=== PATIENT | female | born 1930 | race Caucasian/White ===

== ENCOUNTER 2016-09-01 16:09 | Inpatient (IN) | payer MEDICARE, MEDICAID ==
[~2016-09-01] VITALS: Ht 154.9 cm; Wt 40.9 kg
[~2016-09-01 16:09] MED LIST: AMLO5TAB2 PO; ASPI81TA31 PO; Acetaminophen PO; CARV12.52 PO; Docusate Sodium PO; FLUT16SP NS; LATA2.5D2 EACHEYE; LOSA25TA13 PO; NICO1PAT28 TD; Nut.tx.glucose Intolerance,Soy PO; OMEP40CA37 PO; Zolpidem Tartrate PO
--- NOTE | 2016-09-01 16:55 | NUR ---
DR MONCADA AT THE BEDSIDE FOR EVAL AND EXAM.
[2016-09-01 17:26] LABS: BASOPHILS # (AUTO) 0.1 K/uL (0.0-8.0); BASOPHILS % (AUTO) 0.9 % (0.0-2.0); EOSINOPHILS # (AUTO) 0.3 K/uL (0.0-0.7); EOSINOPHILS % (AUTO) 3.7 % (0.0-7.0); HEMATOCRIT 32.7 % (37-47); HEMOGLOBIN 11.3 G/DL (12.0-16.0); LYMPHOCYTES # (AUTO) 1.3 K/uL (20.0-40.0); LYMPHOCYTES % (AUTO) 18.7 % (20.5-51.5); MEAN CORPUSCULAR HEMOGLOBIN 31.3 UUG (27.0-31.0); MEAN CORPUSCULAR HGB CONC 35 g/dL (32.0-37.0); MEAN CORPUSCULAR VOLUME 90.5 FL (81.0-99.0); MONOCYTES # (AUTO) 0.6 K/uL (2.0-10.0); MONOCYTES % (AUTO) 8.2 % (0.0-11.0); NEUTROPHILS # (AUTO) 4.5 K/uL (1.8-8.9); NEUTROPHILS % (AUTO) 68.5 % (38.5-71.5); PLATELET COUNT (AUTO) 134 K/UL (150-450); RED BLOOD CELL COUNT(AUTO) 3.61 MIL/UL (4.2-5.4); WHITE BLOOD COUNT (AUTO) 6.8 K/UL (4.0-11.2)
[2016-09-01 17:29] LABS: CREATININE 1.3 mg/dL (0.6-1.3); POTASSIUM 4.8 mmol/L (3.5-5.1)
[2016-09-01 17:38] LABS: BILIRUBIN,DIRECT 0.1 mg/dL (0.0-0.2); BILIRUBIN,TOTAL 0.2 mg/dL (0.2-1.0); TOTAL PROTEIN, SERUM 6.5 g/dL (6.4-8.2)
[2016-09-01 18:19] LABS: *BILIRUBIN,URIN NEGATIVE (NEGATIVE); *BLOOD, URINE Trace-lysed (NEGATIVE); *CLARITY,URINE CLEAR (CLEAR); *COLOR,URINE YELLOW (YELLOW); *KETONES,URINE NEGATIVE (NEGATIVE); *UROBILINOGEN,URINE 0.2 E.U./dl (NORMAL); LEUKOCYTE ESTERASE ,URINE NEGATIVE (NEGATIVE); NITRITE, URINE NEGATIVE (NEGATIVE); UGLUCOSE NEGATIVE (NEGATIVE)
[2016-09-01 18:27] LABS: *PROTEIN,URINE 3+ (NEGATIVE)
[2016-09-01 18:28] LABS: BACTERIA,URINE NONE SEEN /HPF (NONE SEEN); RBC,URINE 0-3 /HPF (0-3); SQUAMOUS EPITHELIAL CELL,UR FEW /HPF (NONE SEEN); WBC,URINE 0-3 /HPF (0-3)
--- NOTE | 2016-09-01 20:24 | NUR ---
TRANSFERED TO 2ND FLOOR MED SURG VIA [facility]
[2016-09-01 20:30] VITALS: BP 153/63
--- NOTE | 2016-09-01 20:30 | NUR ---
PATIENT ADMITTED VIA GURNEY UNDER THE CARE OF DR. TAHIRA SOLER, ACCOMPANIED BY DAUGHTER. ALERT ORIENTED, WITH ANXIOUS, AND ANGRY AT THE DAUGHTER, ORIENTED TO ROOM, CALL LIGHTS, BATHROOM. AND TV REMOTE CONTROL.
[2016-09-01] MEDS ORDERED: ONDANSETRON 4 MG/2 ML VIAL IV PRN (21:00)
[2016-09-01] MEDS ORDERED: DEXTROSE 50% 50 ML DISP.SYRIN IV PRN (21:00)
[2016-09-01] MEDS ORDERED: ACETAMINOPHEN 325 MG TABLET PO PRN (21:00)
--- NOTE | 2016-09-01 21:00 | NUR ---
DR. TAHIRA SOLER RETURNED THE PAGE, WITH ORDER, NOTED AND CARRIED OUT.
[2016-09-01] MEDS: BLOOD SUGAR DIAGNOSTIC 1 EACH STRIP VI SCH (22:27)
[2016-09-01] MEDS: LATANOPROST OPHT DROP 2.5 ML BOTTLE EACHEYE SCH (22:27)
[2016-09-02 05:16] VITALS: BP 166/68
--- NOTE | 2016-09-02 05:17 | NUR ---
PATIENT SLEPT MOST OF THE NIGHT, NO SOB NO CHEST PAIN NOTED, ASSIST WITH TOILETING, KEPT CLEAN DRY AND COMFORTABLE.
[2016-09-02] MEDS: PANTOPRAZOLE SODIUM 40 MG TABLET.DR PO SCH (05:51)
[2016-09-02] MEDS: BLOOD SUGAR DIAGNOSTIC 1 EACH STRIP VI SCH ×4 (05:51→21:45)
[2016-09-02 06:34] LABS: BASOPHILS % (AUTO) 0.6 % (0.0-2.0); EOSINOPHILS # (AUTO) 0.3 K/uL (0.0-0.7); EOSINOPHILS % (AUTO) 4.6 % (0.0-7.0); HEMATOCRIT 32.8 % (37-47); HEMOGLOBIN 11.5 G/DL (12.0-16.0); LYMPHOCYTES # (AUTO) 1.2 K/UL (0.8-4.8); LYMPHOCYTES % (AUTO) 17.7 % (20.5-51.5); MEAN CORPUSCULAR HEMOGLOBIN 31.8 UUG (27.0-31.0); MEAN CORPUSCULAR HGB CONC 35 g/dL (32.0-37.0); MEAN CORPUSCULAR VOLUME 90.8 FL (81.0-99.0); MONOCYTES # (AUTO) 0.5 K/UL (0.1-1.30); MONOCYTES % (AUTO) 7.1 % (0.0-11.0); NEUTROPHILS # (AUTO) 4.7 K/UL (1.8-8.9); PLATELET COUNT (AUTO) 126 K/UL (150-450); RED BLOOD CELL COUNT(AUTO) 3.62 MIL/UL (4.2-5.4); WHITE BLOOD COUNT (AUTO) 6.7 K/UL (4.0-11.2)
[2016-09-02 07:06] LABS: BILIRUBIN,TOTAL 0.4 mg/dL (0.2-1.0); CREATININE 1.3 mg/dL (0.6-1.3); TOTAL PROTEIN, SERUM 6.3 g/dL (6.4-8.2)
--- NOTE | 2016-09-02 08:00 | NUR ---
Awake, alert, oriented x 3, forgetful. Assisted to the bathroom then sitting on the chair. Breakfast served. Call light with in reach, instructed use call light for assistance
[2016-09-02] MEDS: FLUTICASONE PROP NASAL SPRAY 16 GM BOTTLE NS SCH (08:35)
[2016-09-02] MEDS: CARVEDILOL 12.5 MG TABLET PO SCH ×2 (08:36→17:11)
[2016-09-02] MEDS: LOSARTAN POTASSIUM 25 MG TABLET PO SCH (08:37)
[2016-09-02] MEDS: AMLODIPINE 5 MG TABLET PO SCH (08:37)
[2016-09-02 11:13] VITALS: BP 136/53
[2016-09-02] MEDS: INSULIN REGULAR, HUMAN 300 UNIT/3 ML VIAL SQ PRN (12:40)
--- NOTE | 2016-09-02 14:00 | NUR ---
Ambulating in the hallway with RN.
[2016-09-02 15:28] VITALS: BP 147/56
--- NOTE | 2016-09-02 18:31 | NUR ---
Ate fairly. Kept dry and comfortable
--- NOTE | 2016-09-02 19:45 | NUR ---
Received pt in bed resting, eyes closed, easily awakens to name. No acute distress noted. Even and nonlabored breathing observed. denies pain or discomfort at this time. call light in reach and safety measures in place, will continue to monitor.
[2016-09-02 20:00] VITALS: BP 145/63
[2016-09-02] MEDS: LATANOPROST OPHT DROP 2.5 ML BOTTLE EACHEYE SCH (21:45)
[2016-09-03] MEDS: BLOOD SUGAR DIAGNOSTIC 1 EACH STRIP VI SCH ×4 (06:30→21:03)
[2016-09-03] MEDS: PANTOPRAZOLE SODIUM 40 MG TABLET.DR PO SCH (06:30)
[2016-09-03 06:31] VITALS: BP 150/67
--- NOTE | 2016-09-03 06:43 | NUR ---
END OF SHIFT NOTE: PATIENT RESTING IN BED, SLEPT INTERMITTENTLY PER SHIFT. NO ACUTE DISTRESS NOTED. NO C/O PAIN PER SHIFT. NO SOB OBSERVED/REPORTED. SAT WNL ON ROOM AIR. VS STABLE. ALL NEEDS MET. CALL LIGHT IN REACH. SAFETY AND COMFORT MEASURES PROVIDED.
--- NOTE | 2016-09-03 07:15 | NUR ---
PT IS LAYING DOWN COMFORTABLY. NO S/S OF RESPIRATORY DISTRESS NOTED. PT REPORT NO PAIN. IV IS REMOVED. NO S/S OF INFECTION/REDDNESS IS NOTED ON IV SITE. WILL CONTINUE TO MONITOR.
--- NOTE | 2016-09-03 08:07 | NUR ---
PT IS CONCERNED ABOUT HER IV "STATES I NEED IT REMOVED, OR ELSE YOU WILL GO WITH ME SOMEWHERE ELSE IF IT'S GONNA GET INFECTED". PER DR. ROMAN "OK TO REMOVE IV". IV WILL BE REMOVED.
[2016-09-03] MEDS: CARVEDILOL 12.5 MG TABLET PO SCH ×2 (08:54→17:32)
[2016-09-03] MEDS: AMLODIPINE 5 MG TABLET PO SCH (08:54)
[2016-09-03] MEDS: FLUTICASONE PROP NASAL SPRAY 16 GM BOTTLE NS SCH (08:55)
[2016-09-03] MEDS: LOSARTAN POTASSIUM 25 MG TABLET PO SCH (08:55)
[2016-09-03 11:26] VITALS: BP 125/50
[2016-09-03 15:36] VITALS: BP 127/56
--- NOTE | 2016-09-03 18:54 | NUR ---
PT. SHOWS NO SIGNS OF ACUTE DISTRESS. PT SHOWS NO SOB. PT. IS CONFUSED. PT STATES NO PAIN. VITAL SIGNS WNL. CONTINUED TO FOLLOW MEDICATION REGIMEN ORDERED.
[2016-09-03 19:00] VITALS: BP 113/44
--- NOTE | 2016-09-03 19:35 | NUR ---
PT RESTING IN BED SLEEPING COMFORTABLY, EASILY AWAKENS TO NAME. NO ACUTE DISTRESS NOTED. EVEN AND NONLABORED BREATHING OBSERVED. VS ARE STABLE. CALL LIGHT WITHIN REACH AND SAFETY MEASURES IN PLACE. WILL CONTINUE TO MONITOR
[2016-09-03] MEDS: LATANOPROST OPHT DROP 2.5 ML BOTTLE EACHEYE SCH (21:03)
[2016-09-04 05:00] VITALS: BP 140/55
[2016-09-04] MEDS: BLOOD SUGAR DIAGNOSTIC 1 EACH STRIP VI SCH ×3 (06:29→17:09)
[2016-09-04] MEDS: PANTOPRAZOLE SODIUM 40 MG TABLET.DR PO SCH (06:29)
--- NOTE | 2016-09-04 06:49 | NUR ---
END OF SHIFT NOTE: PT SLEPT WELL THROUGH THE NIGHT. NO ACUTE DISTRESS PER SHIFT. BG CONTROLLED, REMAINS STABLE, NO COVERAGE PER SLIDING SCALE. VS STABLE. NO C/O PAIN OR DISCOMFORT. NO SOB NOTED/REPORTED. NO SIGNIFICANT CHANGES PER SHIFT. ALL NEEDS ATTENDED AND MET. CALL LIGHT WITHIN REACH. SAFETY MAINTAINED. CONTINUE PLAN OF CARE.
[2016-09-04 06:50] LABS: BILIRUBIN,TOTAL 0.4 mg/dL (0.2-1.0); PHOSPHOROUS 4.3 mg/dL (2.5-4.9); POTASSIUM 4.9 mmol/L (3.5-5.1); TOTAL PROTEIN, SERUM 6.2 g/dL (6.4-8.2)
[2016-09-04 06:54] LABS: CREATININE 1.7 mg/dL (0.6-1.3)
[2016-09-04 07:06] LABS: BASOPHILS % (AUTO) 0.6 % (0.0-2.0); EOSINOPHILS # (AUTO) 0.3 K/uL (0.0-0.7); EOSINOPHILS % (AUTO) 4.9 % (0.0-7.0); HEMATOCRIT 32.6 % (37-47); HEMOGLOBIN 11.1 G/DL (12.0-16.0); LYMPHOCYTES # (AUTO) 1.7 K/UL (0.8-4.8); LYMPHOCYTES % (AUTO) 29.4 % (20.5-51.5); MEAN CORPUSCULAR HEMOGLOBIN 31.6 UUG (27.0-31.0); MEAN CORPUSCULAR HGB CONC 34 g/dL (32.0-37.0); MONOCYTES # (AUTO) 0.5 K/UL (0.1-1.30); MONOCYTES % (AUTO) 8.2 % (0.0-11.0); NEUTROPHILS # (AUTO) 3.4 K/UL (1.8-8.9); NEUTROPHILS % (AUTO) 56.9 % (38.5-71.5); PLATELET COUNT (AUTO) 125 K/UL (150-450); RED BLOOD CELL COUNT(AUTO) 3.51 MIL/UL (4.2-5.4); WHITE BLOOD COUNT (AUTO) 5.9 K/UL (4.0-11.2)
[2016-09-04] MEDS ORDERED: IV 1/2NS 1000 ML 1,000 ML IV PRN (07:30)
--- NOTE | 2016-09-04 07:39 | NUR ---
DC IV FLUIDS, BUT "MAKE SURE THE PATIENT DRINKS FLUIDS", NICOTINE PATCH 14MG DAILY PER DR. GRIMALDO
[2016-09-04] MEDS ORDERED: NICOTINE 14 MG/24HR PATCH TD SCH (09:00)
[2016-09-04] MEDS: FLUTICASONE PROP NASAL SPRAY 16 GM BOTTLE NS SCH (09:13)
[2016-09-04] MEDS: CARVEDILOL 12.5 MG TABLET PO SCH ×2 (09:14→17:07)
[2016-09-04] MEDS: AMLODIPINE 5 MG TABLET PO SCH (09:14)
[2016-09-04] MEDS: INSULIN REGULAR, HUMAN 300 UNIT/3 ML VIAL SQ PRN (11:03)
[2016-09-04 11:39] VITALS: BP 134/58
--- NOTE | 2016-09-04 13:04 | NUR ---
The patient will be discharged today to [facility] [ ; [address] [place] [address]] via [facility]. Spoke to the patient's son, John Paul Dunbar [ ], about the discharge and he was very thankful and in agreement with her discharge. Left a message to her son, Rajeev Loving [ ]. Also spoke to Elliot and Daya from [facility] and they confirmed that they will admit the patient today. Her RN, Meg, is aware of her discharge plan and will call the facility for the report.
[2016-09-04 15:39] VITALS: BP 143/52
[2016-09-04 17:07] VITALS: BP 145/85
--- NOTE | 2016-09-04 17:15 | NUR ---
DISCHARGE NOTE: NO S/S OF RESPIRATORY DISTRESS NOTED. NO PAIN NOTED. PT IS CALM AND COOPERATIVE. EDUCATION IS PROVIDED. V/S WNL. LEFT VIS AMBULANCE. PT IS REMINDED TO BE HYDRATING.
[2016-09-05 11:06] LABS: A/G RATIO 1.2 (0.7-1.7); ALPHA-1-GLOBULIN 0.3 g/dL (0.0-0.4); ALPHA-2-GLOBULIN 0.7 g/dL (0.4-1.0); GAMMA GLOBULIN 0.7 g/dL (0.4-1.8); GLOBULIN, TOTAL 2.6 g/dL (2.2-3.9); M-SPIKE Not Observed g/dL (Not Observed)
== END 2016-09-04 17:15 | DRG 699 ==
LOC: ER 16:09 → MED 20:17
PROVIDERS: ADMIT Internal Medicine Nephrology; ATTEND Internal Medicine Nephrology
DX: N04.9 Nephrotic syndrome with unspecified morphologic changes (principal); E44.1 Mild protein-calorie malnutrition; Z68.1 Body mass index [BMI] 19.9 or less, adult; N17.0 Acute kidney failure with tubular necrosis; R53.1 Weakness; K21.9 Gastro-esophageal reflux disease without esophagitis; D64.9 Anemia, unspecified; E11.9 Type 2 diabetes mellitus without complications; E78.5 Hyperlipidemia, unspecified; F17.210 Nicotine dependence, cigarettes, uncomplicated; F29 Unspecified psychosis not due to a substance or known physiological condition; Z86.73 Personal history of transient ischemic attack (TIA), and cerebral infarction without residual deficits; Z95.810 Presence of automatic (implantable) cardiac defibrillator; I50.9 Heart failure, unspecified; I25.2 Old myocardial infarction; I11.0 Hypertensive heart disease with heart failure; M19.90 Unspecified osteoarthritis, unspecified site; R62.7 Adult failure to thrive
CPT/HCPCS: 36415; 70030-TC; 70450; 71010; 83735; 83970; 84100; 84155; 84165; 84443; 85025; 85730; 93005; 93880; 97161; A4663; J1815; J3535

== ENCOUNTER 2016-10-07 19:51 | Inpatient (IN) | payer MEDICARE, OTHER ==
[~2016-10-07] VITALS: Ht 152.4 cm; Wt 47.6 kg
[~2016-10-07 19:51] MED LIST changes: -ASPI81TA31 PO; -Docusate Sodium PO; -NICO1PAT28 TD; -Nut.tx.glucose Intolerance,Soy PO; -Zolpidem Tartrate PO
[2016-10-07 20:23] LABS: BASOPHILS # (AUTO) 0.3 K/uL (0.0-8.0); BASOPHILS % (AUTO) 3.8 % (0.0-2.0); EOSINOPHILS # (AUTO) 0.3 K/uL (0.0-0.7); EOSINOPHILS % (AUTO) 3.4 % (0.0-7.0); HEMATOCRIT 31.7 % (37-47); HEMOGLOBIN 10.7 G/DL (12.0-16.0); LYMPHOCYTES # (AUTO) 1.6 K/UL (0.8-4.8); LYMPHOCYTES % (AUTO) 17.4 % (20.5-51.5); MEAN CORPUSCULAR HEMOGLOBIN 30.7 UUG (27.0-31.0); MEAN CORPUSCULAR HGB CONC 34 g/dL (32.0-37.0); MEAN CORPUSCULAR VOLUME 90.9 FL (81.0-99.0); MONOCYTES # (AUTO) 0.9 K/UL (0.1-1.30); MONOCYTES % (AUTO) 9.7 % (0.0-11.0); NEUTROPHILS # (AUTO) 5.9 K/UL (1.8-8.9); NEUTROPHILS % (AUTO) 65.7 % (38.5-71.5); PLATELET COUNT (AUTO) 162 K/UL (150-450); RED BLOOD CELL COUNT(AUTO) 3.49 MIL/UL (4.2-5.4)
[2016-10-07 20:39] LABS: ALANINE AMINOTRANSFERASE 18 U/L (14-59); ALKALINE PHOSPHATASE 163 U/L (50-136); ASPARTATE AMINOTRANSFERASE 21 U/L (15-37); BILIRUBIN,DIRECT 0.1 mg/dL (0.0-0.2); BILIRUBIN,TOTAL 0.4 mg/dL (0.2-1.0); CARBON DIOXIDE 23 mmol/L (21-32); CHLORIDE 107 mmol/L (98-107); CREATININE 1.9 mg/dL (0.6-1.3); GLUCOSE 119 mg/dL (74-106); TOTAL PROTEIN, SERUM 7.2 g/dL (6.4-8.2); UREA NITROGEN, BLOOD 33 mg/dL (7-18)
--- NOTE | 2016-10-07 21:28 | NUR ---
Call placed to [facility] Nephrology, Dr. GRIMALDO will be paged.
--- NOTE | 2016-10-07 22:09 | NUR ---
Pt. admitted to M/S, under care of Dr. GRIMALDO Belongs List completed
--- NOTE | 2016-10-07 22:15 | NUR ---
PT RECEIVED FROM ED VIA [employer]. PT A/OX4. ORIENTED TO ROOM. V/S STABLE. NO SIGNS OF ACUTE DISTRESS. NO COMPLAINTS OF PAIN AT THIS TIME. ABLE TO MAKES NEEDS KNOWN. SAFETY MEASURES IMPLEMENTED. CALL LIGHT WITHIN REACH. WILL CONTINUE TO MONITOR.
[2016-10-07 22:20] VITALS: BP 152/59
[2016-10-07] MEDS: CARVEDILOL 12.5 MG TABLET PO SCH (23:32)
[2016-10-07] MEDS ORDERED: CARVEDILOL 12.5 MG TABLET ONE (23:37)
[2016-10-08 04:00] VITALS: BP 129/47
--- NOTE | 2016-10-08 05:35 | NUR ---
PT SLEPT WELL THROUGHOUT SHIFT. V/S STABLE. NO SIGNS OF ACUTE DISTRESS. NO COMPLAINTS OF PAIN DURING SHIFT. NEEDS ATTENDED. SAFETY MAINTAINED. BED ALARM ACTIVATED. CALL LIGHT WITHIN REACH.
--- NOTE | 2016-10-08 08:42 | NUR ---
PATIENT SEEN AND EXAMINED BY DR PAEZ WITH NEW ORDERS AND NOTED.
[2016-10-08] MEDS ORDERED: ACETAMINOPHEN 325 MG TABLET PO PRN (09:00)
[2016-10-08] MEDS ORDERED: CARVEDILOL 12.5 MG TABLET PO SCH (09:00)
--- NOTE | 2016-10-08 09:00 | NUR ---
AWAKE ALERT DENIES PAIN OR DISCOMFORTS AT THIS TIME.ALL NEEDS ANTICIPATED AND SATISFIED.NO SHORTNESS OF BREATH OR COUGH EPISODES NOT IN DISTRESS AT THIS TIME.
[2016-10-08] MEDS: CARVEDILOL 12.5 MG TABLET PO SCH ×2 (09:20→17:47)
[2016-10-08] MEDS: PANTOPRAZOLE SODIUM 40 MG TABLET.DR PO SCH (09:22)
[2016-10-08] MEDS: AMLODIPINE 5 MG TABLET PO SCH (09:23)
[2016-10-08] MEDS: LOSARTAN POTASSIUM 25 MG TABLET PO SCH (09:23)
[2016-10-08 10:00] LABS: *BILIRUBIN,URIN NEGATIVE (NEGATIVE); *BLOOD, URINE Trace-lysed (NEGATIVE); *CLARITY,URINE CLEAR (CLEAR); *COLOR,URINE LIGHT YELLOW (YELLOW); *KETONES,URINE NEGATIVE (NEGATIVE); *UROBILINOGEN,URINE 0.2 E.U./dl (NORMAL); LEUKOCYTE ESTERASE ,URINE NEGATIVE (NEGATIVE); NITRITE, URINE NEGATIVE (NEGATIVE); UGLUCOSE NEGATIVE (NEGATIVE)
[2016-10-08 10:29] LABS: *PROTEIN,URINE 3+ (NEGATIVE)
--- NOTE | 2016-10-08 10:30 | NUR ---
PATIENT PICKED UP BY W/CHAIR TO RADIOLOGY FOR CT CHEST ORDERED WITHOUT CONTRAST.PATIENT IS AWAKE ALERT TO SELF NOTED CONFUSSION AT THIS TIME.
[2016-10-08 10:31] LABS: *CREATININE,URINE 32.1 mg/dL (30-125); *URINE TOTAL PROTEIN RANDOM 151.3 mg/dL (<150/24HR)
[2016-10-08 10:41] LABS: BACTERIA,URINE FEW /HPF (NONE SEEN); RBC,URINE 0-3 /HPF (0-3); SQUAMOUS EPITHELIAL CELL,UR FEW /HPF (NONE SEEN); WBC,URINE NONE SEEN /HPF (0-3); YEAST,URINE FEW /HPF (NONE SEEN)
[2016-10-08 12:02] VITALS: BP 121/46
[2016-10-08] MEDS: FLUTICASONE PROP NASAL SPRAY 16 GM BOTTLE NS SCH (12:16)
--- NOTE | 2016-10-08 14:24 | NUR ---
MORE DISORIENTATION NOTED AT THIS TIME ONE TO ONE REORIENTATION IS ONGOING TO REDUCE CONFUSSION ALL NEEDS ANTICIPATED AND SATISFIED MADE COMFORTABLE NOT IN DISTRESS AT THIS TIME.WILL CONTINUE TO OBSERVE.
[2016-10-08 15:46] VITALS: BP 128/55
--- NOTE | 2016-10-08 16:30 | NUR ---
PICKING ON HER HEPLOCK DOES NOT KNOW WHY ITS THERE ALL ATTEMPTS TO EXPLAIN TO HER THAT IT NEEDS TO BE THERE FAILED SO I WRAPPED IT WIT SVETLANA TO PREVENT HER FROM PULLING IT OUT.
--- NOTE | 2016-10-08 18:45 | NUR ---
CALL RECEIVED FROM THE PATIENTS DAUGHTER STATED THAT HER MOM IS A SMOKER AND WILL REQUIRE A PATCH CALLED DR MENENDEZ OFFICE AND LEFT A MESSAGE WITH THE ANSWERING SERVICE. ENDORSED
--- NOTE | 2016-10-08 19:18 | NUR ---
PATIENT IN BED ALERT, AWAKE, NO SOB NO CHEST PAIN NOTED. ASSISTED WITH TOILETING, NO COMPLAIN OF PAIN AT THIS TIME. CONT TO MONITOR.
[2016-10-08 20:00] VITALS: BP 131/44
[2016-10-08] MEDS: LATANOPROST OPHT DROP 2.5 ML BOTTLE EACHEYE SCH (20:26)
--- NOTE | 2016-10-09 01:15 | NUR ---
NICOTINE PATCH APPLIED ON RIGHT UPPER ARM. ORDERED.
[2016-10-09] MEDS: NICOTINE 21 MG/24HR PATCH TD SCH ×2 (01:20→08:29)
[2016-10-09] MEDS ORDERED: NICOTINE 21 MG/24HR PATCH TD ONE (01:28)
[2016-10-09 05:12] VITALS: BP 139/40
[2016-10-09] MEDS: PANTOPRAZOLE SODIUM 40 MG TABLET.DR PO SCH (06:06)
[2016-10-09 06:43] LABS: BASOPHILS % (AUTO) 0.5 % (0.0-2.0); EOSINOPHILS # (AUTO) 0.3 K/uL (0.0-0.7); EOSINOPHILS % (AUTO) 4.5 % (0.0-7.0); HEMATOCRIT 31.6 % (37-47); HEMOGLOBIN 10.8 G/DL (12.0-16.0); LYMPHOCYTES # (AUTO) 1.5 K/UL (0.8-4.8); MEAN CORPUSCULAR HGB CONC 34 g/dL (32.0-37.0); MONOCYTES # (AUTO) 0.5 K/UL (0.1-1.30); MONOCYTES % (AUTO) 7.4 % (0.0-11.0); NEUTROPHILS # (AUTO) 4.5 K/UL (1.8-8.9); NEUTROPHILS % (AUTO) 65.6 % (38.5-71.5); PLATELET COUNT (AUTO) 159 K/UL (150-450); RED BLOOD CELL COUNT(AUTO) 3.47 MIL/UL (4.2-5.4); WHITE BLOOD COUNT (AUTO) 6.8 K/UL (4.0-11.2)
[2016-10-09 06:44] LABS: ALANINE AMINOTRANSFERASE 15 U/L (14-59); ALKALINE PHOSPHATASE 138 U/L (50-136); ASPARTATE AMINOTRANSFERASE 21 U/L (15-37); BILIRUBIN,TOTAL 0.5 mg/dL (0.2-1.0); CARBON DIOXIDE 24 mmol/L (21-32); CHLORIDE 109 mmol/L (98-107); CREATINE KINASE, TOTAL 98 U/L (26-192); CREATININE 1.6 mg/dL (0.6-1.3); GLUCOSE 87 mg/dL (74-106); MAGNESIUM 1.7 mg/dL (1.8-2.4); PHOSPHOROUS 3.7 mg/dL (2.5-4.9); UREA NITROGEN, BLOOD 28 mg/dL (7-18)
[2016-10-09] MEDS: AMLODIPINE 5 MG TABLET PO SCH (08:29)
[2016-10-09] MEDS: LOSARTAN POTASSIUM 25 MG TABLET PO SCH (08:29)
[2016-10-09] MEDS: FLUTICASONE PROP NASAL SPRAY 16 GM BOTTLE NS SCH (08:29)
[2016-10-09] MEDS: CARVEDILOL 12.5 MG TABLET PO SCH ×2 (08:41→17:28)
[2016-10-09] MEDS ORDERED: MAGNESIUM OXIDE 400 MG TABLET PO ONE (09:30)
[2016-10-09 11:28] VITALS: BP 128/48
[2016-10-09 15:31] VITALS: BP 136/53
[2016-10-09 20:00] VITALS: BP 131/53
[2016-10-09] MEDS: LATANOPROST OPHT DROP 2.5 ML BOTTLE EACHEYE SCH (20:27)
[2016-10-09] MEDS ORDERED: NICOTINE 21 MG/24HR PATCH TD SCH (21:00)
[2016-10-10 04:49] VITALS: BP 138/59
--- NOTE | 2016-10-10 05:25 | NUR ---
PT SLEEPING AT THIS TIME, IN NO ACUTE SIGN OF DISTRESS. IN NO ACUTE SIGN OF DISTRESS. SAFETY MAINTAINED. CALL LIGHT WITHIN REACH.
[2016-10-10] MEDS: PANTOPRAZOLE SODIUM 40 MG TABLET.DR PO SCH (06:13)
[2016-10-10 06:52] LABS: CARBON DIOXIDE 23 mmol/L (21-32); CHLORIDE 108 mmol/L (98-107); CREATININE 1.6 mg/dL (0.6-1.3); GLUCOSE 137 mg/dL (74-106); MAGNESIUM 1.8 mg/dL (1.8-2.4); POTASSIUM 4.9 mmol/L (3.5-5.1); UREA NITROGEN, BLOOD 30 mg/dL (7-18)
[2016-10-10] MEDS: CARVEDILOL 12.5 MG TABLET PO SCH ×2 (08:00→17:55)
[2016-10-10] MEDS: LOSARTAN POTASSIUM 25 MG TABLET PO SCH (09:00)
[2016-10-10] MEDS: NICOTINE 21 MG/24HR PATCH TD SCH (09:00)
[2016-10-10] MEDS: FLUTICASONE PROP NASAL SPRAY 16 GM BOTTLE NS SCH (09:00)
[2016-10-10] MEDS: AMLODIPINE 5 MG TABLET PO SCH (09:00)
--- NOTE | 2016-10-10 09:08 | NUR ---
Patient eloped from facility. Patient asked for assistance from someone to get to first floor and then walked through the front passed security. Myself and two staff proceeding to look for patient finding her at bus stop.Patient became upset and resistant to coming back. [employer] Technician notified and assisted. Patient back on unit. Refusing meds and treatment.
[2016-10-10 11:59] VITALS: BP 137/51
[2016-10-10 15:09] LABS: A/G RATIO 1.2 (0.7-1.7); ALBUMIN 3.4 g/dL (2.9-4.4); ALPHA-1-GLOBULIN 0.3 g/dL (0.0-0.4); ALPHA-2-GLOBULIN 0.8 g/dL (0.4-1.0); BETA GLOBULIN 1.1 g/dL (0.7-1.3); GAMMA GLOBULIN 0.7 g/dL (0.4-1.8); GLOBULIN, TOTAL 2.9 g/dL (2.2-3.9); M-SPIKE Not Observed g/dL (Not Observed)
[2016-10-10 15:28] VITALS: BP 121/63
[2016-10-10 20:00] VITALS: BP 112/37
--- NOTE | 2016-10-10 20:00 | NUR ---
RECEIVED PATIENT AWAKE IN BED. A/O X2. FORGETFUL AT TIMES AND NEEDS REINFORCEMENT. VSS. DENIES PAIN OR DISCOMFORT. NO RESP. DISTRESS NOTED. SITTER AT BEDSIDE FOR SAFETY. CALL LIGHT IN REACH. ALL NEEDS ATTENDED. WILL CONTINUE TO MONITOR. ALL NEEDS ATTENDED.
[2016-10-10] MEDS ORDERED: ZOLPIDEM 5 MG TABLET PO PRN (20:45)
[2016-10-10] MEDS: LATANOPROST OPHT DROP 2.5 ML BOTTLE EACHEYE SCH (20:55)
[2016-10-11 06:00] VITALS: BP_SYST 146; BP_SYST 156; BP_DIAS 62
--- NOTE | 2016-10-11 06:30 | NUR ---
PATIENT AWAKE IN ROOM. SLEPT WELL THROUGHOUT THE NIGHT. VSS. SITTER AT BEDSIDE. WILL CONTINUE TO MONITOR AND ASSESS.
[2016-10-11] MEDS: PANTOPRAZOLE SODIUM 40 MG TABLET.DR PO SCH (06:44)
[2016-10-11 07:45] LABS: ALANINE AMINOTRANSFERASE 14 U/L (14-59); ALKALINE PHOSPHATASE 145 U/L (50-136); ASPARTATE AMINOTRANSFERASE 21 U/L (15-37); BILIRUBIN,TOTAL 0.4 mg/dL (0.2-1.0); CARBON DIOXIDE 24 mmol/L (21-32); CHLORIDE 106 mmol/L (98-107); CREATININE 1.7 mg/dL (0.6-1.3); GLUCOSE 95 mg/dL (74-106); MAGNESIUM 1.9 mg/dL (1.8-2.4); PHOSPHOROUS 3.9 mg/dL (2.5-4.9); TOTAL PROTEIN, SERUM 7.3 g/dL (6.4-8.2); UREA NITROGEN, BLOOD 32 mg/dL (7-18)
[2016-10-11 07:46] LABS: BASOPHILS # (AUTO) 0.1 K/uL (0.0-8.0); BASOPHILS % (AUTO) 0.9 % (0.0-2.0); EOSINOPHILS # (AUTO) 0.4 K/uL (0.0-0.7); HEMATOCRIT 33.4 % (37-47); HEMOGLOBIN 11.1 G/DL (12.0-16.0); LYMPHOCYTES % (AUTO) 27.5 % (20.5-51.5); MEAN CORPUSCULAR HEMOGLOBIN 30.5 UUG (27.0-31.0); MEAN CORPUSCULAR HGB CONC 33 g/dL (32.0-37.0); MONOCYTES # (AUTO) 0.6 K/UL (0.1-1.30); MONOCYTES % (AUTO) 8.2 % (0.0-11.0); NEUTROPHILS # (AUTO) 4.3 K/UL (1.8-8.9); NEUTROPHILS % (AUTO) 58.4 % (38.5-71.5); PLATELET COUNT (AUTO) 183 K/UL (150-450); RED BLOOD CELL COUNT(AUTO) 3.64 MIL/UL (4.2-5.4); WHITE BLOOD COUNT (AUTO) 7.4 K/UL (4.0-11.2)
--- NOTE | 2016-10-11 08:30 | NUR ---
AWAKE ORTX2 COOPERATE WELL ABLE TO FOLLOW SIMPLE DIRECTION ON FALL PRECAUTION RESTING WELL WITH CALL CAM[place]O IN REACH AND SITTER AT BEDSIDE FOR SAFETY
[2016-10-11] MEDS: CARVEDILOL 12.5 MG TABLET PO SCH (08:48)
[2016-10-11] MEDS: AMLODIPINE 5 MG TABLET PO SCH (08:48)
[2016-10-11] MEDS: NICOTINE 21 MG/24HR PATCH TD SCH (08:49)
[2016-10-11] MEDS: LOSARTAN POTASSIUM 25 MG TABLET PO SCH (08:49)
[2016-10-11] MEDS: FLUTICASONE PROP NASAL SPRAY 16 GM BOTTLE NS SCH (09:01)
--- NOTE | 2016-10-11 10:00 | NUR ---
DR PAEZ SEE PATIENT AND ORDER OK TO D/C TO U D/C INSTRUCTION GIVEN TOP PATIENT AND FAMILY
[2016-10-11 11:17] VITALS: BP 138/64
--- NOTE | 2016-10-11 14:30 | NUR ---
REPORT GIVEN TO NURSE AT [facility] VIA TEL PATIENT CONDITION STABLE EAT LUNCH WELL NO AGITATION D/C SHEET SIGNS
--- NOTE | 2016-10-11 15:00 | NUR ---
D/C TO [facility] VIA W/C CONDITION STABLE ALL BELONGING GIVEN TO PATIENT
[2016-10-11] MEDS ORDERED: LOSA25TA3 PO (17:15)
[2016-10-11] MEDS ORDERED: PANT40TA2 PO (17:16)
[2016-10-11] MEDS ORDERED: QUET25TA PO (17:17)
[2016-10-11] MEDS ORDERED: ZOLP5TAB2 PO (17:18)
[2016-10-11] MEDS ORDERED: QUETIAPINE FUMARATE 25 MG TABLET PO SCH (21:00)
== END 2016-10-11 15:00 | DRG 640 ==
LOC: ER 19:53 → MED 22:05
PROVIDERS: ADMIT Internal Medicine; ATTEND Internal Medicine
DX: R62.7 Adult failure to thrive (principal); N17.0 Acute kidney failure with tubular necrosis; I13.0 Hypertensive heart and chronic kidney disease with heart failure and stage 1 through stage 4 chronic kidney disease, or unspecified chronic kidney disease; E11.22 Type 2 diabetes mellitus with diabetic chronic kidney disease; I50.9 Heart failure, unspecified; N18.9 Chronic kidney disease, unspecified; K21.9 Gastro-esophageal reflux disease without esophagitis; F17.210 Nicotine dependence, cigarettes, uncomplicated; H40.9 Unspecified glaucoma; I25.10 Atherosclerotic heart disease of native coronary artery without angina pectoris; E78.5 Hyperlipidemia, unspecified; Z79.899 Other long term (current) drug therapy; Z86.11 Personal history of tuberculosis; Z86.73 Personal history of transient ischemic attack (TIA), and cerebral infarction without residual deficits; Z95.0 Presence of cardiac pacemaker; F03.90 Unspecified dementia, unspecified severity, without behavioral disturbance, psychotic disturbance, mood disturbance, and anxiety; M19.90 Unspecified osteoarthritis, unspecified site; I25.2 Old myocardial infarction; J30.9 Allergic rhinitis, unspecified; J44.9 Chronic obstructive pulmonary disease, unspecified; R91.8 Other nonspecific abnormal finding of lung field; E04.1 Nontoxic single thyroid nodule; F32.9 Major depressive disorder, single episode, unspecified; I49.9 Cardiac arrhythmia, unspecified
CPT/HCPCS: 36415; 71010; 71250; 76770; 83735; 83970; 84100; 84155; 84156; 84165; 84300; 85025; 85730; 93005; A4663; J3535

== ENCOUNTER 2016-10-11 16:13 | Inpatient (IN) | payer MEDICARE, OTHER ==
[~2016-10-11] VITALS: Ht 144.8 cm; Wt 42.2 kg
[2016-10-11 15:00] VITALS: BP 131/60
[2016-10-11] MEDS ORDERED: MAG HYDROX/AL HYDROX/SIMETH 30 ML LIQUID UDC PO PRN (16:45)
[2016-10-11] MEDS ORDERED: LORAZEPAM 0.5 MG TABLET PO PRN (16:45)
[2016-10-11] MEDS ORDERED: ACETAMINOPHEN 325 MG TABLET PO PRN (16:45)
[2016-10-11] MEDS ORDERED: TEMAZEPAM 7.5 MG CAPSULE PO PRN (16:45)
[2016-10-11] MEDS ORDERED: MAGNESIUM HYDROXIDE 30 ML LIQUID UDC PO PRN (16:45)
[2016-10-11] MEDS ORDERED: LOSA25TA3 PO (17:15)
[2016-10-11] MEDS ORDERED: PANT40TA2 PO (17:16)
[2016-10-11] MEDS ORDERED: QUET25TA PO (17:17)
[2016-10-11] MEDS ORDERED: ZOLP5TAB2 PO (17:18)
[2016-10-11] MEDS: CARVEDILOL 12.5 MG TABLET PO SCH (18:11)
[2016-10-11 20:21] VITALS: BP 137/58
[2016-10-11] MEDS: LATANOPROST OPHT DROP 2.5 ML BOTTLE EACHEYE SCH (20:22)
[2016-10-12] MEDS: PANTOPRAZOLE SODIUM 40 MG TABLET.DR PO SCH (06:39)
[2016-10-12 07:30] VITALS: BP 154/59
[2016-10-12] MEDS: LOSARTAN POTASSIUM 25 MG TABLET PO SCH (09:38)
[2016-10-12] MEDS: FLUTICASONE PROP NASAL SPRAY 16 GM BOTTLE NS SCH (09:38)
[2016-10-12] MEDS: CARVEDILOL 12.5 MG TABLET PO SCH ×2 (09:38→18:09)
[2016-10-12] MEDS: AMLODIPINE 5 MG TABLET PO SCH (09:38)
[2016-10-12] MEDS: NICOTINE 14 MG/24HR PATCH TD SCH (09:45)
[2016-10-12 16:00] VITALS: BP 146/53
[2016-10-12] MEDS: LATANOPROST OPHT DROP 2.5 ML BOTTLE EACHEYE SCH (21:22)
[2016-10-12] MEDS: QUETIAPINE FUMARATE 25 MG TABLET PO SCH (21:22)
[2016-10-12 22:52] VITALS: BP 146/53
[2016-10-13] MEDS: PANTOPRAZOLE SODIUM 40 MG TABLET.DR PO SCH (06:33)
[2016-10-13 06:41] LABS: ALANINE AMINOTRANSFERASE 11 U/L (14-59); ALKALINE PHOSPHATASE 121 U/L (50-136); ASPARTATE AMINOTRANSFERASE 20 U/L (15-37); BILIRUBIN,TOTAL 0.4 mg/dL (0.2-1.0); CARBON DIOXIDE 25 mmol/L (21-32); CHLORIDE 108 mmol/L (98-107); CREATININE 1.6 mg/dL (0.6-1.3); GLUCOSE 85 mg/dL (74-106); POTASSIUM 5.3 mmol/L (3.5-5.1); TOTAL PROTEIN, SERUM 6.6 g/dL (6.4-8.2); UREA NITROGEN, BLOOD 34 mg/dL (7-18)
[2016-10-13 07:30] VITALS: BP 125/52
[2016-10-13 07:45] LABS: BASOPHILS # (AUTO) 0.1 K/uL (0.0-8.0); BASOPHILS % (AUTO) 0.9 % (0.0-2.0); EOSINOPHILS # (AUTO) 0.3 K/uL (0.0-0.7); EOSINOPHILS % (AUTO) 5.1 % (0.0-7.0); HEMATOCRIT 30.1 % (37-47); HEMOGLOBIN 10.1 G/DL (12.0-16.0); LYMPHOCYTES # (AUTO) 1.9 K/UL (0.8-4.8); LYMPHOCYTES % (AUTO) 32.7 % (20.5-51.5); MEAN CORPUSCULAR HEMOGLOBIN 30.6 UUG (27.0-31.0); MEAN CORPUSCULAR HGB CONC 34 g/dL (32.0-37.0); MEAN CORPUSCULAR VOLUME 91.1 FL (81.0-99.0); MONOCYTES # (AUTO) 0.6 K/UL (0.1-1.30); MONOCYTES % (AUTO) 9.7 % (0.0-11.0); NEUTROPHILS % (AUTO) 51.6 % (38.5-71.5); PLATELET COUNT (AUTO) 151 K/UL (150-450); WHITE BLOOD COUNT (AUTO) 5.9 K/UL (4.0-11.2)
[2016-10-13] MEDS: CARVEDILOL 12.5 MG TABLET PO SCH ×2 (08:57→17:03)
[2016-10-13] MEDS: AMLODIPINE 5 MG TABLET PO SCH (08:57)
[2016-10-13] MEDS: NICOTINE 14 MG/24HR PATCH TD SCH (08:58)
[2016-10-13] MEDS: LOSARTAN POTASSIUM 25 MG TABLET PO SCH (08:58)
[2016-10-13] MEDS: FLUTICASONE PROP NASAL SPRAY 16 GM BOTTLE NS SCH (08:59)
[2016-10-13 16:25] VITALS: BP 135/50
[2016-10-13] MEDS: QUETIAPINE FUMARATE 25 MG TABLET PO SCH (20:10)
[2016-10-13] MEDS: LATANOPROST OPHT DROP 2.5 ML BOTTLE EACHEYE SCH (20:10)
[2016-10-13 20:26] VITALS: BP 111/56
[2016-10-14] MEDS: PANTOPRAZOLE SODIUM 40 MG TABLET.DR PO SCH (06:09)
[2016-10-14 07:30] VITALS: BP 126/53
[2016-10-14 07:34] LABS: BASOPHILS % (AUTO) 0.8 % (0.0-2.0); EOSINOPHILS # (AUTO) 0.3 K/uL (0.0-0.7); HEMATOCRIT 30.5 % (37-47); HEMOGLOBIN 10.3 G/DL (12.0-16.0); LYMPHOCYTES # (AUTO) 1.7 K/UL (0.8-4.8); LYMPHOCYTES % (AUTO) 28.4 % (20.5-51.5); MEAN CORPUSCULAR HEMOGLOBIN 30.8 UUG (27.0-31.0); MEAN CORPUSCULAR HGB CONC 34 g/dL (32.0-37.0); MEAN CORPUSCULAR VOLUME 91.7 FL (81.0-99.0); MONOCYTES # (AUTO) 0.6 K/UL (0.1-1.30); MONOCYTES % (AUTO) 9.9 % (0.0-11.0); NEUTROPHILS # (AUTO) 3.4 K/UL (1.8-8.9); NEUTROPHILS % (AUTO) 55.9 % (38.5-71.5); PLATELET COUNT (AUTO) 160 K/UL (150-450); RED BLOOD CELL COUNT(AUTO) 3.33 MIL/UL (4.2-5.4)
[2016-10-14 08:18] LABS: ALANINE AMINOTRANSFERASE 16 U/L (14-59); ALKALINE PHOSPHATASE 130 U/L (50-136); ASPARTATE AMINOTRANSFERASE 23 U/L (15-37); BILIRUBIN,TOTAL 0.3 mg/dL (0.2-1.0); CARBON DIOXIDE 23 mmol/L (21-32); CHLORIDE 107 mmol/L (98-107); CREATININE 1.8 mg/dL (0.6-1.3); GLUCOSE 77 mg/dL (74-106); MAGNESIUM 1.7 mg/dL (1.8-2.4); PHOSPHOROUS 3.9 mg/dL (2.5-4.9); POTASSIUM 5.3 mmol/L (3.5-5.1); TOTAL PROTEIN, SERUM 6.5 g/dL (6.4-8.2)
[2016-10-14] MEDS: CARVEDILOL 12.5 MG TABLET PO SCH ×2 (08:36→17:45)
[2016-10-14] MEDS: NICOTINE 14 MG/24HR PATCH TD SCH (08:36)
[2016-10-14] MEDS: AMLODIPINE 5 MG TABLET PO SCH (08:36)
[2016-10-14] MEDS: FLUTICASONE PROP NASAL SPRAY 16 GM BOTTLE NS SCH (08:38)
[2016-10-14 12:15] LABS: UREA NITROGEN, BLOOD 40 mg/dL (7-18)
[2016-10-14] MEDS ORDERED: MAGNESIUM OXIDE 400 MG TABLET PO ONE (13:00)
[2016-10-14 16:57] VITALS: BP 128/50
[2016-10-14] MEDS: QUETIAPINE FUMARATE 25 MG TABLET PO SCH (20:24)
[2016-10-14] MEDS: LATANOPROST OPHT DROP 2.5 ML BOTTLE EACHEYE SCH (20:24)
[2016-10-14 20:26] VITALS: BP 131/55
[2016-10-14 21:02] LABS: *BILIRUBIN,URIN NEGATIVE (NEGATIVE); *BLOOD, URINE Trace-lysed (NEGATIVE); *CLARITY,URINE CLEAR (CLEAR); *COLOR,URINE YELLOW (YELLOW); *KETONES,URINE NEGATIVE (NEGATIVE); *UROBILINOGEN,URINE 0.2 E.U./dl (NORMAL); LEUKOCYTE ESTERASE ,URINE NEGATIVE (NEGATIVE); NITRITE, URINE NEGATIVE (NEGATIVE); UGLUCOSE NEGATIVE (NEGATIVE)
[2016-10-14 21:08] LABS: *PROTEIN,URINE 3+ (NEGATIVE)
[2016-10-14 21:10] LABS: RBC,URINE 0-3 /HPF (0-3); SQUAMOUS EPITHELIAL CELL,UR FEW /HPF (NONE SEEN); WBC,URINE 0-3 /HPF (0-3)
[2016-10-14 21:11] LABS: *CREATININE,URINE 28.4 mg/dL (30-125); *URINE TOTAL PROTEIN RANDOM 111.9 mg/dL (<150/24HR)
[2016-10-15] MEDS: PANTOPRAZOLE SODIUM 40 MG TABLET.DR PO SCH (06:18)
[2016-10-15 07:30] VITALS: BP 154/58
[2016-10-15] MEDS: NICOTINE 14 MG/24HR PATCH TD SCH (08:24)
[2016-10-15] MEDS: AMLODIPINE 5 MG TABLET PO SCH (08:24)
[2016-10-15] MEDS: CARVEDILOL 12.5 MG TABLET PO SCH ×2 (08:25→16:47)
[2016-10-15] MEDS: FLUTICASONE PROP NASAL SPRAY 16 GM BOTTLE NS SCH (08:25)
[2016-10-15 16:00] VITALS: BP 128/50
[2016-10-15 20:10] VITALS: BP 134/56
[2016-10-15] MEDS: LATANOPROST OPHT DROP 2.5 ML BOTTLE EACHEYE SCH (21:02)
[2016-10-15] MEDS: QUETIAPINE FUMARATE 25 MG TABLET PO SCH (21:35)
[2016-10-16] MEDS: PANTOPRAZOLE SODIUM 40 MG TABLET.DR PO SCH (06:17)
[2016-10-16 07:30] VITALS: BP 134/52
[2016-10-16] MEDS: NICOTINE 14 MG/24HR PATCH TD SCH (09:11)
[2016-10-16] MEDS: AMLODIPINE 5 MG TABLET PO SCH (09:11)
[2016-10-16] MEDS: CARVEDILOL 12.5 MG TABLET PO SCH ×2 (09:12→16:47)
[2016-10-16] MEDS: FLUTICASONE PROP NASAL SPRAY 16 GM BOTTLE NS SCH (09:15)
[2016-10-16 15:33] VITALS: BP 140/50
[2016-10-16 20:29] VITALS: BP 142/55
[2016-10-16] MEDS: QUETIAPINE FUMARATE 25 MG TABLET PO SCH (21:41)
[2016-10-16] MEDS: LATANOPROST OPHT DROP 2.5 ML BOTTLE EACHEYE SCH (21:41)
[2016-10-17 07:30] VITALS: BP 143/58
[2016-10-17] MEDS: PANTOPRAZOLE SODIUM 40 MG TABLET.DR PO SCH (07:47)
[2016-10-17] MEDS: AMLODIPINE 5 MG TABLET PO SCH (09:22)
[2016-10-17] MEDS: CARVEDILOL 12.5 MG TABLET PO SCH ×2 (09:22→17:13)
[2016-10-17] MEDS: NICOTINE 14 MG/24HR PATCH TD SCH (09:22)
[2016-10-17] MEDS: FLUTICASONE PROP NASAL SPRAY 16 GM BOTTLE NS SCH (09:23)
[2016-10-17 16:43] VITALS: BP 136/50
[2016-10-17 20:34] VITALS: BP 126/51
[2016-10-17] MEDS: QUETIAPINE FUMARATE 25 MG TABLET PO SCH (22:22)
[2016-10-17] MEDS: LATANOPROST OPHT DROP 2.5 ML BOTTLE EACHEYE SCH (22:23)
[2016-10-18] MEDS: PANTOPRAZOLE SODIUM 40 MG TABLET.DR PO SCH (06:50)
[2016-10-18] MEDS: AMLODIPINE 5 MG TABLET PO SCH (08:20)
[2016-10-18] MEDS: CARVEDILOL 12.5 MG TABLET PO SCH ×2 (08:21→17:06)
[2016-10-18] MEDS: NICOTINE 14 MG/24HR PATCH TD SCH (08:21)
[2016-10-18] MEDS: FLUTICASONE PROP NASAL SPRAY 16 GM BOTTLE NS SCH (08:25)
[2016-10-18 08:30] VITALS: BP 119/50
[2016-10-18 16:03] VITALS: BP 112/50
[2016-10-18 20:07] VITALS: BP 114/60
[2016-10-18] MEDS: LATANOPROST OPHT DROP 2.5 ML BOTTLE EACHEYE SCH (20:28)
[2016-10-18] MEDS: QUETIAPINE FUMARATE 25 MG TABLET PO SCH (20:28)
[2016-10-19] MEDS: PANTOPRAZOLE SODIUM 40 MG TABLET.DR PO SCH (06:51)
[2016-10-19 07:30] VITALS: BP 107/51
[2016-10-19 07:53] LABS: CARBON DIOXIDE 24 mmol/L (21-32); CHLORIDE 105 mmol/L (98-107); CREATININE 1.8 mg/dL (0.6-1.3); GLUCOSE 87 mg/dL (74-106); MAGNESIUM 1.9 mg/dL (1.8-2.4); PHOSPHOROUS 4.2 mg/dL (2.5-4.9); POTASSIUM 5.9 mmol/L (3.5-5.1); UREA NITROGEN, BLOOD 49 mg/dL (7-18)
[2016-10-19 08:20] LABS: BASOPHILS % (AUTO) 0.4 % (0.0-2.0); EOSINOPHILS # (AUTO) 0.3 K/uL (0.0-0.7); EOSINOPHILS % (AUTO) 5.1 % (0.0-7.0); HEMATOCRIT 31.1 % (37-47); HEMOGLOBIN 10.1 G/DL (12.0-16.0); LYMPHOCYTES # (AUTO) 1.4 K/UL (0.8-4.8); LYMPHOCYTES % (AUTO) 24.7 % (20.5-51.5); MEAN CORPUSCULAR HEMOGLOBIN 29.5 UUG (27.0-31.0); MEAN CORPUSCULAR HGB CONC 32 g/dL (32.0-37.0); MEAN CORPUSCULAR VOLUME 91.5 FL (81.0-99.0); MONOCYTES # (AUTO) 0.6 K/UL (0.1-1.30); MONOCYTES % (AUTO) 10.9 % (0.0-11.0); NEUTROPHILS # (AUTO) 3.4 K/UL (1.8-8.9); NEUTROPHILS % (AUTO) 58.9 % (38.5-71.5); PLATELET COUNT (AUTO) 137 K/UL (150-450); RED BLOOD CELL COUNT(AUTO) 3.41 MIL/UL (4.2-5.4); WHITE BLOOD COUNT (AUTO) 5.7 K/UL (4.0-11.2)
[2016-10-19] MEDS: NICOTINE 14 MG/24HR PATCH TD SCH (08:31)
[2016-10-19] MEDS: CARVEDILOL 12.5 MG TABLET PO SCH ×2 (08:32→17:47)
[2016-10-19] MEDS: AMLODIPINE 5 MG TABLET PO SCH (08:33)
[2016-10-19] MEDS: FLUTICASONE PROP NASAL SPRAY 16 GM BOTTLE NS SCH (08:34)
[2016-10-19] MEDS ORDERED: SODIUM POLYSTYRENE SULFONATE 15 G/60 ML LIQUID UDC PO ONE (09:45)
[2016-10-19 15:55] VITALS: BP 115/48
[2016-10-19 19:47] VITALS: BP 145/55
[2016-10-19] MEDS: QUETIAPINE FUMARATE 25 MG TABLET PO SCH (20:13)
[2016-10-19] MEDS: LATANOPROST OPHT DROP 2.5 ML BOTTLE EACHEYE SCH (20:13)
[2016-10-20] MEDS: PANTOPRAZOLE SODIUM 40 MG TABLET.DR PO SCH (06:29)
[2016-10-20 07:21] LABS: BASOPHILS # (AUTO) 0.1 K/uL (0.0-8.0); BASOPHILS % (AUTO) 0.7 % (0.0-2.0); EOSINOPHILS # (AUTO) 0.4 K/uL (0.0-0.7); EOSINOPHILS % (AUTO) 4.8 % (0.0-7.0); HEMATOCRIT 32.4 % (37-47); HEMOGLOBIN 10.6 G/DL (12.0-16.0); LYMPHOCYTES # (AUTO) 1.3 K/UL (0.8-4.8); LYMPHOCYTES % (AUTO) 17.5 % (20.5-51.5); MEAN CORPUSCULAR HEMOGLOBIN 30.1 UUG (27.0-31.0); MEAN CORPUSCULAR HGB CONC 33 g/dL (32.0-37.0); MEAN CORPUSCULAR VOLUME 91.8 FL (81.0-99.0); MONOCYTES # (AUTO) 0.7 K/UL (0.1-1.30); MONOCYTES % (AUTO) 9.5 % (0.0-11.0); NEUTROPHILS # (AUTO) 5.2 K/UL (1.8-8.9); NEUTROPHILS % (AUTO) 67.5 % (38.5-71.5); PLATELET COUNT (AUTO) 154 K/UL (150-450); RED BLOOD CELL COUNT(AUTO) 3.53 MIL/UL (4.2-5.4); WHITE BLOOD COUNT (AUTO) 7.7 K/UL (4.0-11.2)
[2016-10-20 07:30] VITALS: BP 127/61
[2016-10-20 07:37] LABS: CARBON DIOXIDE 26 mmol/L (21-32); CHLORIDE 105 mmol/L (98-107); CREATININE 1.7 mg/dL (0.6-1.3); GLUCOSE 97 mg/dL (74-106); MAGNESIUM 1.7 mg/dL (1.8-2.4); PHOSPHOROUS 4.5 mg/dL (2.5-4.9); POTASSIUM 4.1 mmol/L (3.5-5.1); UREA NITROGEN, BLOOD 41 mg/dL (7-18)
[2016-10-20] MEDS: NICOTINE 14 MG/24HR PATCH TD SCH (08:05)
[2016-10-20] MEDS: FLUTICASONE PROP NASAL SPRAY 16 GM BOTTLE NS SCH (08:06)
[2016-10-20] MEDS: AMLODIPINE 5 MG TABLET PO SCH (08:06)
[2016-10-20] MEDS: CARVEDILOL 12.5 MG TABLET PO SCH ×2 (08:06→16:10)
[2016-10-20] MEDS ORDERED: MAGNESIUM OXIDE 400 MG TABLET PO ONE (14:15)
[2016-10-20 15:33] VITALS: BP 123/50
[2016-10-20] MEDS: QUETIAPINE FUMARATE 25 MG TABLET PO SCH (20:20)
[2016-10-20] MEDS: LATANOPROST OPHT DROP 2.5 ML BOTTLE EACHEYE SCH (20:20)
[2016-10-20 20:41] VITALS: BP 136/60
[2016-10-21] MEDS: PANTOPRAZOLE SODIUM 40 MG TABLET.DR PO SCH (06:14)
[2016-10-21 07:30] VITALS: BP 141/63
[2016-10-21] MEDS: NICOTINE 14 MG/24HR PATCH TD SCH (08:39)
[2016-10-21] MEDS: CARVEDILOL 12.5 MG TABLET PO SCH (08:40)
[2016-10-21] MEDS: FLUTICASONE PROP NASAL SPRAY 16 GM BOTTLE NS SCH (08:40)
[2016-10-21] MEDS: AMLODIPINE 5 MG TABLET PO SCH (08:41)
[2016-10-21 14:06] LABS: VIT D, 25-HYDROXY 20.8 ng/mL (30.0-100.0)
[2016-10-21 15:29] VITALS: BP 138/55
[2016-10-22 10:10] LABS: CALCITRIOL VIT D,1,25 DIHYDROX 36.1 pg/mL (19.9-79.3)
== END 2016-10-21 16:50 | DRG 885 ==
LOC: GPS 16:13
PROVIDERS: ADMIT Psychiatry & Neurology Psychiatry; ATTEND Internal Medicine
DX: F29 Unspecified psychosis not due to a substance or known physiological condition (principal); N17.0 Acute kidney failure with tubular necrosis; N18.9 Chronic kidney disease, unspecified; F03.91 Unspecified dementia, unspecified severity, with behavioral disturbance; I13.0 Hypertensive heart and chronic kidney disease with heart failure and stage 1 through stage 4 chronic kidney disease, or unspecified chronic kidney disease; Z91.83 Wandering in diseases classified elsewhere; Z86.73 Personal history of transient ischemic attack (TIA), and cerebral infarction without residual deficits; K21.9 Gastro-esophageal reflux disease without esophagitis; M19.90 Unspecified osteoarthritis, unspecified site; I50.9 Heart failure, unspecified; E87.5 Hyperkalemia; Z95.0 Presence of cardiac pacemaker; R91.1 Solitary pulmonary nodule; I25.10 Atherosclerotic heart disease of native coronary artery without angina pectoris; I25.2 Old myocardial infarction; D50.0 Iron deficiency anemia secondary to blood loss (chronic); E11.22 Type 2 diabetes mellitus with diabetic chronic kidney disease; J44.9 Chronic obstructive pulmonary disease, unspecified
CPT/HCPCS: 36415; 82306; 82652; 83735; 83970; 84100; 84156; 84300; 85025; J3535